=== PATIENT | male | born 1955 | race Caucasian/White ===

== ENCOUNTER → 2022-04-22 08:37 | Outpatient (BNVA) | payer MEDICARE, SELFPAY | PROVIDERS: PCP Internal Medicine; Visit Provider Anesthesiology | DX: G90.521 Complex regional pain syndrome I of right lower limb (principal); G89.4 Chronic pain syndrome; Z96.651 Presence of right artificial knee joint | CPT/HCPCS: 99202 ==

== ENCOUNTER 2023-06-11 10:42 | Outpatient (REF) | payer MEDICARE, SELFPAY ==
--- NOTE | ~2023-06-11 | XR_ITS ---
EXAMINATION: XR LUMBAR SPINE XR HIP, RIGHT, WITH PELVIS CLINICAL INFORMATION: Wedge compression fracture of L1 along with right hip pain. COMPARISON: None available. TECHNIQUE: 3 views lumbosacral spine, 2 views pelvis and 2 views right hip. FINDINGS: Lumbosacral Spine: Compression fractures with anterior wedging are present involving L1 and L2. No other fractures are seen. Disc spaces are relatively well preserved with the exception of L1-L2. There is grade 1 anterolisthesis of L5 upon S1. Pelvis and Right Hip: Bilateral hip prostheses are present. There has been extensive abdominal wall surgery with multiple clips. A lateral plate and screw device extends from the bottom of the right hip prosthesis all the way to the lateral femoral condyle with multiple screws. Healed fracture involving the distal femur is present. 2 cerclage sutures are present proximally with 2 present distally. A right knee prosthesis is partially included. No acute fractures are seen. XR/XR lumbar spine 2-3V IMPRESSION: 1. Compression fractures with anterior wedging involving L1 and L2. 2. Bilateral hip prostheses and right knee prosthesis. 3. No acute fractures are seen in the pelvis or right hip.
--- NOTE | ~2023-06-11 | XR_ITS ---
EXAMINATION: XR LUMBAR SPINE XR HIP, RIGHT, WITH PELVIS CLINICAL INFORMATION: Wedge compression fracture of L1 along with right hip pain. COMPARISON: None available. TECHNIQUE: 3 views lumbosacral spine, 2 views pelvis and 2 views right hip. FINDINGS: Lumbosacral Spine: Compression fractures with anterior wedging are present involving L1 and L2. No other fractures are seen. Disc spaces are relatively well preserved with the exception of L1-L2. There is grade 1 anterolisthesis of L5 upon S1. Pelvis and Right Hip: Bilateral hip prostheses are present. There has been extensive abdominal wall surgery with multiple clips. A lateral plate and screw device extends from the bottom of the right hip prosthesis all the way to the lateral femoral condyle with multiple screws. Healed fracture involving the distal femur is present. 2 cerclage sutures are present proximally with 2 present distally. A right knee prosthesis is partially included. No acute fractures are seen. XR/XR hip RT w PEL1V IMPRESSION: 1. Compression fractures with anterior wedging involving L1 and L2. 2. Bilateral hip prostheses and right knee prosthesis. 3. No acute fractures are seen in the pelvis or right hip.
== END 2023-06-11 10:43 | disposition home or self-care (01) ==
LOC: HO.HOSX 10:42
PROVIDERS: PCP Internal Medicine; Visit Provider Physical Medicine & Rehabilitation
DX: S32.000A Wedge compression fracture of unspecified lumbar vertebra, initial encounter for closed fracture (principal); M54.50 Low back pain, unspecified; M25.551 Pain in right hip; G89.29 Other chronic pain; X58.XXXA Exposure to other specified factors, initial encounter; Y93.9 Activity, unspecified; Y92.9 Unspecified place or not applicable; Y99.9 Unspecified external cause status
CPT/HCPCS: 72100; 73502

== ENCOUNTER 2023-06-11 10:42 | Outpatient (AMB) | payer MEDICARE, SELFPAY ==
--- NOTE | 2023-06-11 10:45 | A.OFFVIS_ITS ---
Intake Vital Signs 06/11/23 10:51 Height 5 ft 7 in Weight 280 lb BMI 43.8 Intake Visit Reasons: New Pt lower back pain Intake Note: Murray is a 68 year old male who presents today as a new patient with complaints of lower back pain. These symtpoms have onset gradually, was recently seen with pain mgmt on 04/22/23 who considered diagnosis of complex regional pain syndrome and recommends [employer] spinal cord stimulator. Patient reports that his lower right back pain has been present for quite some time now and has gotten worse over time. He has not had any previous treatment. This pain is present all the time, worse in the morning. 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 Recommended for spinal cord stimulator. 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 Says he was at [facility] for 10 days recently for pneumonia. He says he was supposed to go to a doctor in to put something but did not happen because he was in the hospital. He does not recall seeing Pain Management and discussing spinal cord stimulator. Poor historian. Chronic lower back pain, right sided, radiates to right leg. Per review of the notes from [facility], he also had an L1 vertebral fracture. Patient says he fell 4 months ago. On repeat questioning, he says pain started only after he fell. Says he has surgery on right knee. But past notes from [facility] indicates right hip ORIF. [facility] Medical History (Updated 06/11/23 @ 11:25 by Aruna Hicks MD) Lumbar compression fracture Surgical History (Updated 06/11/23 @ 10:50 by Jodi Perez CMA) History of appendectomy History of hip surgery Hx of hernia repair History of total left knee replacement Social History (Updated 06/11/23 @ 10:56 by Jodi Perez CMA) Current occupational status: retired Review of Systems Const All systems reviewed & are unremarkable except as noted in HPI and below Physical Exam Vital Signs: BMI result Body Mass Index 43.8 Constitutional: Patient appears to be in no acute distress, well nourished and well developed. Patient was appropriately conversant and oriented. Poor historian. MSK: No pinpoint tenderness on spinous processes. Area of tenderness is in right quadratus lumbar muscle. No SI joint tenderness. No GT tenderness. Antalgic gait. Neurological: Mood appears normal, good affect, and appropriate for the circumstances. Neurologic examination of the upper and lower extremities was nonfocal with intact sensation, muscle stretch reflexes and without focal motor deficits. Lopez?s negative bilaterally. Babinski was down going bilaterally. Clonus was negative. Results Reviewed Results Reviewed: No available imaging for my review. I reviewed records from the following: Dr. Pedroza - [employer] spinal cord stimulator. Notes from [facility] and [facility] reviewed Assessment & Plan Assessment & Plan (1) Hip pain: Code(s): M25.559 - Pain in unspecified hip (2) Lumbar compression fracture: Code(s): S32.000A - Wedge compression fracture of unspecified lumbar vertebra, initial encounter for closed fracture Plan Given question of recent L1 fracture and continued right hip pain, it would be reasonable to get lumbar and right hip x-rays today to further evaluate. If there is any fracture, physiatry/orthopedics can continue to advise or guide treatment. Otherwise he is a pain management patient who was being considered for spinal cord stimulator already. We would help him get follow-up appointment with them today. Orders: Orders XR hip RT w PEL1V Today M25.559 - Pain in unspecified hip XR lumbar spine 2-3V Today S32.000A - Wedge compression fracture of unspecified lumbar vertebra, initial encounter for closed fracture Coding Level of Care Code New Pt Level 4 (19999) Diagnoses Hip pain M25.559 Lumbar compression fracture S32.000A
[2023-06-11 10:51] VITALS: BMI 43.8
== END 2023-06-11 12:09 | disposition home or self-care (01) ==
PROVIDERS: PCP Internal Medicine; Visit Provider Physical Medicine & Rehabilitation
DX: M25.551 Pain in right hip (principal); S32.000A Wedge compression fracture of unspecified lumbar vertebra, initial encounter for closed fracture
CPT/HCPCS: 99204

== ENCOUNTER 2023-06-26 11:24 | Outpatient (AMB) | payer MEDICARE, SELFPAY ==
--- NOTE | 2023-06-26 11:25 | MHC.OFFVIS ---
Intake Intake Visit Reasons: Per Allergies NSAIDS (Non-Steroidal Anti-Inflamma [NSAIDS (NON-STEROIDAL ANTI-INFLAMMA] Allergy (Unknown, Verified 06/26/23 11:25) TOLD TO AVOID seasonal Allergy (Unknown, Uncoded 06/11/23 10:56) Unknown HPI HPI Comments History of Present Illness Details Murray ([place] in [place]) is very pleasant 68 years old gentleman who was referred to my office this time by the PM&R physician Dr. Aruna Hicks, who discovered this patient to have compression fracture of L1 and L2 vertebra as. Previously this patient was under observation in this office for lower back pain. He reported that his pain is moderate to severe in nature. He was offered spinal cord stimulator at that time. Unfortunately he fell off of the radar with this office. Now he is coming back for me to perform kyphoplasty on him. Apparently had a trauma in February of 2023. However the referral was made only now. The MRI which was done a week ago still demonstrates significant edema at L1 and L2 vertebra as. Today we called the patient and offered him kyphoplasty procedure. I explained to the patient at this late after the fracture it is mostly not about the pain it is rather about prevention of exaggerated kyphosis and diminishing pulmonary function capacity which could lead to poor bronchial toilet, pneumonias, and even . He is suffering from liver cirrhosis and he is alcoholic. We need to send him for stat CBC, PT, PTT and INR. He is on Eliquis for atrial fibrillation he will stop his Eliquis on 06/28/2023 and we will do the procedure on 07/02/2023. This will be balloon kyphoplasty of L1 and L2 vertebras. [facility] Medical History (Updated 06/26/23 @ 11:51 by Miguel Angel Pedroza MD) Lumbar compression fracture Surgical History (Updated 06/11/23 @ 10:50 by Jodi Perez CMA) History of appendectomy History of hip surgery Hx of hernia repair History of total left knee replacement Social History (Updated 06/11/23 @ 10:56 by Jodi Perez CMA) Current occupational status: retired Review of Systems Const Denies excessive sweating and Denies fatigue Eyes Denies change in vision ENT Reports Normal hearing present Card Denies chest pain at rest, Denies chest pain with activity, Denies diaphoresis, Denies syncope, Denies rapid heart rate and Denies pedal edema Resp Denies chest congestion, Denies cough, Denies hemoptysis, Denies pain on inspiration and Denies pain with cough GI Denies abdominal pain, Denies belching, Denies melena and Denies bloating Denies urinary incontinence Musc Reports as per HPI Neuro Reports Normal hearing present, Denies Abnormal speech present, Denies syncope, Denies seizure-like activity and Denies Sensory deficit (Neuro) Psych Denies irritability and Denies anhedonia Endo Denies excessive sweating and Denies fatigue Physical Exam Neuro Cranial nerves: Yes Normal hearing present Speech: No Abnormal speech present Sensory Exam: No Sensory deficit (Neuro) Results Reviewed Results Reviewed: Assessment & Plan Assessment & Plan (1) Lumbar compression fracture: Code(s): S32.000A - Wedge compression fracture of unspecified lumbar vertebra, initial encounter for closed fracture (2) Chronic pain syndrome: Code(s): G89.4 - Chronic pain syndrome (3) Compression fracture of L1 lumbar vertebra: Code(s): S32.010A - Wedge compression fracture of first lumbar vertebra, initial encounter for closed fracture (4) Compression fracture of L2 lumbar vertebra: Code(s): S32.020A - Wedge compression fracture of second lumbar vertebra, initial encounter for closed fracture Plan I WILL SEND THIS PATIENT FOR CBC AND PT/PTT/INR. We have about 5 days until the procedure. I am planning to do L1 and L2 kyphoplasty for this patient. I spoke with patient's daughter and explained the situation with the patient. His daughter told me that her father all is alcoholic and he is condition might be deteriorating in terms of liver function. I need to see platelets and normal PT and APTT numbers before the procedure. We can also order FFP and platelets to proceed with this intervention to normalize the coagulation status peer He will stop his Eliquis on Friday the last pill he will take Friday night. Orders: Orders Complete Blood Count Auto Diff Today G89.4 - Chronic pain syndrome, M25.559 - Pain in unspecified hip, S32.000A - Wedge compression fracture of unspecified lumbar vertebra, initial encounter for closed fracture, S32.010A - Wedge compression fracture of first lumbar vertebra, initial encounter for closed fracture, S32.020A - Wedge compression fracture of second lumbar vertebra, initial encounter for closed fracture Mixing Study (PT/PTT) Today G89.4 - Chronic pain syndrome, S32.000A - Wedge compression fracture of unspecified lumbar vertebra, initial encounter for closed fracture, S32.010A - Wedge compression fracture of first lumbar vertebra, initial encounter for closed fracture, S32.020A - Wedge compression fracture of second lumbar vertebra, initial encounter for closed fracture Partial Thromboplastin Time Today G89.4 - Chronic pain syndrome, S32.000A - Wedge compression fracture of unspecified lumbar vertebra, initial encounter for closed fracture, S32.010A - Wedge compression fracture of first lumbar vertebra, initial encounter for closed fracture, S32.020A - Wedge compression fracture of second lumbar vertebra, initial encounter for closed fracture Patient Instructions: I here by testify that I spent 60 minutes in conversation with this patient, with patient's caregiver, as well as with patient's daughter, as well as I was planning his care and organizing his note. Telehealth Telehealth Location of provider rendering services: practice address Location of patient: address on file Patient Identification confirmed using: Name, : Yes Telehealth method: voice only Patient verbally consented to treatment: Yes Patient verbally consented to billing insurance company: Yes Patient informed of any privacy concerns related to visit: Yes Coding Level of Care Code Tele Est Pt Level 5 (88312) Diagnoses Lumbar compression fracture S32.000A Chronic pain syndrome G89.4 Compression fracture of L1 lumbar vertebra S32.010A Compression fracture of L2 lumbar vertebra S32.020A
== END 2023-06-26 11:48 | disposition home or self-care (01) ==
LOC: HO.PMC 11:25
PROVIDERS: PCP Internal Medicine; Visit Provider Anesthesiology
DX: S32.000A Wedge compression fracture of unspecified lumbar vertebra, initial encounter for closed fracture (principal); G89.4 Chronic pain syndrome; S32.010A Wedge compression fracture of first lumbar vertebra, initial encounter for closed fracture; S32.020A Wedge compression fracture of second lumbar vertebra, initial encounter for closed fracture
CPT/HCPCS: 99443

== ENCOUNTER → 2023-06-26 11:24 | Outpatient (BNVA) | payer MEDICARE, SELFPAY | PROVIDERS: PCP Internal Medicine; Visit Provider Anesthesiology ==

== ENCOUNTER 2023-07-02 09:10 | Outpatient (REF) | payer MEDICARE, SELFPAY ==
[2023-07-02 10:21] LABS: MANUAL DIFF FLAG NO
[2023-07-02 10:26] LABS: Basophils Absolute Auto 0.1 X10*3/uL (0.0-0.2); Basophils Percent Auto 1.1 % (0-2); Eosinophils Absolute Auto 0.2 X10*3/uL (0.0-0.4); Eosinophils Percent Auto 5.4 % (0-4); Hematocrit 32.4 % (42.0-52.0); Hemoglobin 10.8 g/dl (14.0-18.0); Imm Gran Abs Auto 0.02 X10*3/uL (0.00-0.03); Imm Gran Pct Auto 0.4 % (0.0-0.4); Lymphocytes Percent Auto 44.7 % (20-40); Mean Corpuscular HGB Conc 33.3 g/dl (31.0-36.0); Mean Corpuscular Hemoglobin 32.9 pg (27.0-33.0); Mean Corpuscular Volume 98.8 fL (80.0-98.0); Mean Platelet Volume 12.6 fL (9.4-12.4); Monocytes Absolute Auto 0.4 X10*3/uL (0.1-1.2); Monocytes Percent Auto 8.5 % (2-11); Neutrophils Absolute Auto 1.8 x10*3/uL (2.0-8.3); Neutrophils Percent Auto 39.9 % (45-73); Platelet Count 141 X10*3/uL (160-400); Red Blood Count 3.28 X10*6/uL (4.60-5.80); Red Cell Distribution Width 13.5 % (11.0-16.0); White Blood Count 4.5 X10*3/uL (4.8-10.8)
[2023-07-02 10:32] LABS: Partial Thromboplastin Time 27.3 SEC (26.0-36.4)
[2023-07-02 11:11] LABS: INTERNATIONAL NORM RATIO 1.1 (0.9-1.1); Prothrombin Time 13.2 SEC (11.1-13.3)
== END 2023-07-02 09:11 | disposition home or self-care (01) ==
LOC: HO.10HDL 09:10
PROVIDERS: Visit Provider Anesthesiology
DX: S32.020A Wedge compression fracture of second lumbar vertebra, initial encounter for closed fracture (principal); S32.010A Wedge compression fracture of first lumbar vertebra, initial encounter for closed fracture; G89.4 Chronic pain syndrome; M25.559 Pain in unspecified hip; X58.XXXA Exposure to other specified factors, initial encounter; Y93.9 Activity, unspecified; Y92.9 Unspecified place or not applicable; Y99.9 Unspecified external cause status
CPT/HCPCS: 36415; 85025; 85610; 85611; 85730; 85732

== ENCOUNTER 2023-07-03 09:11 | Day surgery (SDC) | payer MEDICARE, SELFPAY ==
--- NOTE | 2023-07-02 10:35 | PC.NURSE ---
Call placed to patient at 1015 to see if he was coming to his procedure today. This nurse spoke to a family member who was his ride. He stated We were just there at the hospital, on the second floor room 205, and two nurses at the desk told us his procedure wasn't until tomorrow at 1115, we can come right back but Murray is eating now . This nurse walked down to isolation unit/pain clinic to notify them. Unsure at this time who family and patient spoke to to receive wrong information. Dr. Pedroza made aware. Case cancelled due to NPO status.
[2023-07-03] VITALS (8 sets, daily range): BP systolic 90–145; BP diastolic 44–91; PULSE 53–71; RESP 14–20; TEMP 36.2–36.8; O2SAT 96–97; BMI 32.4
--- NOTE | 2023-07-03 10:09 | HO.ANESPROP2 ---
HPI - Anesthesia Eval Consult details Narrative: for kyphoplasty PMFSH Active Problems Active Problems: All Active Problems (Updated 07/01/23 @ 10:05 by Esperanza Garcia RN) Compression fracture of L2 lumbar vertebra (Acute) Compression fracture of L1 lumbar vertebra (Acute) Hip pain (Acute) Status post total knee replacement, right (Acute) Chronic pain syndrome (Acute) Complex regional pain syndrome of right lower extremity (Acute) Lumbar compression fracture (Acute) Past Medical History Medical History (Updated 07/01/23 @ 10:05 by Esperanza Garcia RN) Alcoholism Cirrhosis Atrial fibrillation Lumbar compression fracture Family History Family history of problems with anesthesia: No Surgical History Surgical History (Updated 06/11/23 @ 10:50 by Jodi Perez CMA) History of appendectomy History of hip surgery Hx of hernia repair History of total left knee replacement History of Problems with Anesthesia: No Social History Social History (Updated 06/11/23 @ 10:56 by Jodi Perez CMA) Patient Tobacco Use Status: Never used Tobacco Are you DNR?: No Advance Directives: No Advance Directives Information Provided: Yes Nutrition Risks: No Nutritional Risk Current occupational status: retired [employer] Allergies Allergy/AdvReac Type Severity Reaction Status Date / Time NSAIDS (Non-Steroidal Allergy Unknown TOLD TO Verified 06/26/23 11:25 Anti-Inflamma AVOID [NSAIDS (NON-STEROIDAL ANTI-INFLAMMA] seasonal Allergy Unknown Unknown Uncoded 06/11/23 10:56 Active Medications: Current Medications Lactated Ringer's (Lr) 1,000 mls @ 50 mls/hr IVCONT .Q20H NAMRATA Last Admin: 07/03/23 10:01 Dose: 50 mls/hr Home Medications Medication Instructions Recorded Confirmed Last Taken Type acamprosate 333 mg tablet,delayed 333 mg PO TID 04/22/22 07/03/23 History release apixaban 5 mg tablet (Eliquis) 5 mg PO BID 04/22/22 06/26/23 History atorvastatin 10 mg tablet 10 mg PO DAILY 04/22/22 07/03/23 History diltiazem HCl 120 mg 120 mg PO DAILY 04/22/22 07/03/23 History capsule,extended release 24 hr (Cartia XT) folic acid 1 mg tablet 1 mg PO DAILY 04/22/22 07/03/23 History multivitamin with folic acid 400 1 tab PO DAILY 04/22/22 07/03/23 History mcg tablet (Daily-Edd (with folic acid)) pantoprazole 40 mg tablet,delayed 40 mg PO BID 04/22/22 07/03/23 History release potassium chloride 20 mEq 20 meq PO DAILY 04/22/22 07/03/23 History tablet,extended release thiamine HCl (vitamin B1) 100 mg 100 mg PO DAILY 04/22/22 07/03/23 History tablet Exam Exam Date and Time: July 03, 2023 100 Height,Weight and Vital Signs: Height 5 ft 7 in Weight 93.894 kg Last Vital Signs Temp 98.3 F 07/03/23 09:37 Pulse 68 07/03/23 09:37 Resp 20 07/03/23 09:37 BP 145/91 H 07/03/23 09:37 Pulse Ox 97 07/03/23 09:37 O2 Del Method Room Air 07/03/23 09:37 Airway Mallampati Class: III TM Dist: <=3cm Neck ROM: Limited Heart: ok Lungs: ok Assessment and Plan Assessment Anesthesia Assessment: Anesthesia Plan Discussed and Chart Reviewed Final Anesthetic Review Family History of Problems with Anesthesia: No History of Problems with Anesthesia: No NPO: Yes ASA Class: III Final Preanesthetic Review: No Changes in Pt Med Stat, Consent Obtained/Reviewed and Anes Risks/Benef Reviewed Patient Risk: Intermediate Procedure Risk: Intermediate Anesthetic Plan Anesthetic Plan: GA and Agree w/ Assess. and Plan Disposition: Standard PACU
--- NOTE | 2023-07-03 11:10 | MHC.SHP ---
Pre-Procedural Eval Section A Date of Service: 07/03/23 The patient is an INPATIENT: No Changes since office visit: Yes Patient answered all questions The History & Physical has been completed within 30 days and I have reviewed it.: No Section B Chief Complaint: Wedge compression fracture of first lumbar vertebr Details of Present Illness: L1 and L2 VCF Relevant Family History (Specify if Yes): No Relevant Social History: None Present Medications: None Medical History: Significant History History of Previous Operations: No relevant previous surgery Allergies: Allergies Allergy/AdvReac Type Severity Reaction Status Date / Time NSAIDS (Non-Steroidal Allergy Unknown TOLD TO Verified 06/26/23 11:25 Anti-Inflamma AVOID [NSAIDS (NON-STEROIDAL ANTI-INFLAMMA] seasonal Allergy Unknown Unknown Uncoded 06/11/23 10:56 Review of Systems Sugical H&P ROS: Negative: Cardiovascular, Respiratory, Neurological, Psychiatric, Hem-Onc, Allergic/Immunologic, Genitourinary, Integumentary, Endocrine and Eyes/Ears/Nose/Throat and Yes, Specify: Constitution (obesity), Gastrointestinal (liver cirrosis) and Musculoskeletal (osteoporosis) Exam Surgical H&P Exam: Normal: HEENT, Normal: Heart, Normal: Lungs, Normal: Extremities, Normal: Skin and Normal: Neurological and Significant Findings: Abdomen (enlarged) Plan Diagnosis/Plan: Unchanged I have reviewed the history and physical and performed a pertinent physical examination on my patient. No changes have occurred unless specified. Time Spent With Patient Time: Total time managing care of this patient today ___5_ minutes.
--- NOTE | 2023-07-03 13:38 | PM.OP ---
Brief Operative Note Date of Service: 07/03/23 Pre-op diagnosis: Compression fracture L1 and re-fracture of L2 vertebra Post-op diagnosis: same Procedure: Kyphoplasty L1 and L2 vertebra Implants: cement polimethylmethacrilare in both L1 and L2 vertebra Surgeon: Miguel Angel Pedroza MD Anesthesia: GETA Was an Campground Cleaning Attendant used for this Procedure?: No Estimated blood loss (mL): 8 Condition: stable Disposition: PACU
--- NOTE | 2023-07-03 13:41 | W.PM.OPN ---
Operative Note Operative Note Date of Service: 07/03/23 Narrative: Kyphoplasty of L1 and L2 vertebrae. Murray is very pleasant 68 years old gentleman who has had severe back pain that began approximately 4-5 months ago and is debilitating. He has been unresponsive to nonoperative treatment modalities including bed rest and analgesics. He presents with and is on medication therapy for coronary artery disease, history of AFib, chronic anticoagulation therapy with Eliquis , liver cirrhosis, osteoporosis, history of alcoholism . The patient stops his Eliquis on Friday06/27/2023. Radiographic imaging including MRI (06/11/23) confirms compression fractures of the spine at L1 and L2 vertebrae and demonstrate osseous edema in both L1 and L2 vertebras. In addition to the fractures, he demonstrate kyphotic posture. X-ray image demonstrated L1 and L2 osteoporotic fractures as well as increased loss of height at L2 and L1 vertebras. The decision was made to proceed for L1-L2 kyphoplasty. The patient was brought to the operating room/radiology suite and general anesthesia/local sedation with endotracheal intubation was performed. He received 2 g of cefazolin approximately 35 minutes before onset of the procedure. The patient was positioned prone on the radiolucent operating table, all pressure points were carefully protected and padded. The entire back was prepped with ChloraPrep twice and draped with full body sterile drape. Sterilely draped image intensifier (C-arm) was brought into position and the L2 pedicles were identified and marked with a skin marker. The points of entrance of the bilateral pedicels were chosen as the lateral margin of the equator of the pedicle on the anterior posterior view bilaterally. The entrance points to the skin was chosen as 3 cms away from the both point interest projection to the skin. The entrance points were anesthetized with lidocaine 2% mixed with ropivacaine 0.5% 1-1. after that paramedian 5 mm incision with 11 blade scalpel was made 1st on the right and then on the left side of the vertebra. After that the [employer] osteo introducer was advanced through the incision toward the point of interest 1st on the right and than the left and it was inserted into the bone only until stable. After that advancement of osteo introducer was made through the L2 pedicels to the junction of the pedicels and vertebral body on the right side 1st and on the left side 2nd. the Osteo introducer was hammered into the vertebral body through the pedicle on anterior posterior and lateral views. Care was taken not to cross medial border of the pedicular image on the anterior posterior view until the tip of the introducer is firmly in the vertebral body of L2 vertebra on the lateral view. the direction of the [employer] advancement was made in parallel to the superior and inferior borders of the pedicle. After the tip of the [employer] introducers were firmly position in the posterior 3rd of the vertebral body the hand drill was obtained and created passes for the intervertebral balloons advancing to the anterior 3rd of the vertebral body of L2 on lateral view. After that the vertebral balloons were inserted into the both introducers and they started to inflate on anterior posterior and lateral views intermittently with care taken not to exceed 200 psi of the inflation pressure. After that the balloons were removed and methacrylate contrasted cement was obtained and it was used to fill the created cavity inside the L2 vertebra. Three mLs of the cement were used on the right side and 2.5 mLs were used on the left side. The care was taken when the filling was performed to prevent cement spreading beyond the anterior and posterior margins of the image of the vertebra on the lateral view. The care was taken to prevent also backing up the contrasted cement into the image of the pedicles. No pedicular fractures was observed. After that attention was concentrated on L1 vertebra with the procedure repeated in the similar fashion on L1 vertebra. The total doses of the contrasted cement injected into the L1 vertebra was 4 mL on the right side and 1.0 mL on the left side. Upon completion of the instrumentation the Jamshidi introducers were removed, the incisions were closed using 4 0-0 silk vertical mattress sutures. Bacitracin ointment was applied and sterile dressing was applied with tegaderm. After that patient was awakened, extubated, and transferred stable to PACU. He reported axial pain in the projection of the incisions he denied discomfort in lower extremities. He exhibited normal muscular strength of bilateral lower extremities. The patient tolerated procedure fairly well.
== END 2023-07-03 15:44 | disposition home or self-care (01) ==
PROVIDERS: PCP Family Medicine; Visit Provider Anesthesiology
PROC: (CPT 22514; principal; 2023-07-03 11:00)
DX: S32.010A Wedge compression fracture of first lumbar vertebra, initial encounter for closed fracture (principal); S32.020A Wedge compression fracture of second lumbar vertebra, initial encounter for closed fracture; G89.4 Chronic pain syndrome; X58.XXXA Exposure to other specified factors, initial encounter; Y93.9 Activity, unspecified; Y92.89 Other specified places as the place of occurrence of the external cause; Y99.9 Unspecified external cause status; I25.10 Atherosclerotic heart disease of native coronary artery without angina pectoris; I48.91 Unspecified atrial fibrillation; Z79.01 Long term (current) use of anticoagulants; F10.20 Alcohol dependence, uncomplicated; K74.60 Unspecified cirrhosis of liver; Z79.899 Other long term (current) drug therapy; Z88.8 Allergy status to other drugs, medicaments and biological substances; Z98.890 Other specified postprocedural states
CPT/HCPCS: 22514; 22515; 36415; 85730; C1713; J0690; J2795; J3010; Q9967

== ENCOUNTER → 2023-07-03 09:11 | Outpatient (BNV) | payer MEDICARE, SELFPAY | PROVIDERS: PCP Family Medicine; Visit Provider Anesthesiology | DX: S32.010A Wedge compression fracture of first lumbar vertebra, initial encounter for closed fracture (principal); S32.020A Wedge compression fracture of second lumbar vertebra, initial encounter for closed fracture | CPT/HCPCS: 22514; 22515 ==

== ENCOUNTER 2023-07-16 13:22 | Outpatient (AMB) | payer MEDICARE, SELFPAY ==
--- NOTE | 2023-07-16 13:41 | A.OFFVIS_ITS ---
Intake Vital Signs 07/16/23 13:42 Height 5 ft 7 in Weight 207 lb 8 oz BMI 32.5 BP 138/68 Blood Pressure Location Rt brachial Respiration 16 Pulse 60 Pulse Source Pulse Oximeter Pulse Oximetry (%) 98 Oxygen Delivery Method Room Air Intake Visit Reasons: S/p Kyphoplasty 07/03/23 Allergies NSAIDS (Non-Steroidal Anti-Inflamma [NSAIDS (NON-STEROIDAL ANTI-INFLAMMA] Allergy (Unknown, Verified 07/16/23 13:43) TOLD TO AVOID seasonal Allergy (Unknown, Uncoded 06/11/23 10:56) Unknown HPI HPI Comments History of Present Illness Details Murray (Anhel in [place]) is very pleasant 68 years old gentleman who was referred to my office this time by the PM&R physician Dr. Aruna Ma, who discovered this patient to have compression fracture of L1 and L2 vertebras. He went for kyphoplasty L1 and L2 vertebra and he reports better respiratory function and absence of pain with deep breath. However he continues to endorse lower back pain. I in the past he was in this office considered to be a subject of neuromodulation treatment for lower back pain. We were considering him as Nevro versus pain pump candidate. However because he was an alcoholic he was unable to pass through psychological evaluation. He reports today that he was sober for past 2 months. We will find out whether not he will be a good candidate for psych evaluation now. Meanwhile he had MRI of the lumbar spine with [facility] which demonstrated only upper lumbar area. I suspect that he might have some Modic type changes in his lumbar spine and he could be a subject of intraseptal procedure. I will schedule him for the MRI of the lumbar lumbar spine. I need SRIR images please. He came today with no dressing on the areas of the incisions but incisions are completely healed. They were worst with ChloraPrep and the silk sutures were severed with scalpel. After that sterile Tegaderm films were applied. The patient was instructed not to take shower for 24 hours. Prior: Previously this patient was under observation in this office for lower back pain. He reported that his pain is moderate to severe in nature. He was offered spinal cord stimulator at that time. Unfortunately he fell off of the radar with this office. Now he is coming back for me to perform kyphoplasty on him. Apparently had a trauma in February of 2023. However the referral was made only now. The MRI which was done a week ago still demonstrates significant edema at L1 and L2 vertebra as. Today we called the patient and offered him kyphoplasty procedure. I explained to the patient at this late after the fracture it is mostly not about the pain it is rather about prevention of exaggerated kyphosis and diminishing pulmonary function capacity which could lead to poor bronchial toilet, pneumonias, and even . He is suffering from liver cirrhosis and he is alcoholic. We need to send him for stat CBC, PT, PTT and INR. He is on Eliquis for atrial fibrillation he will stop his Eliquis on 06/28/2023 and we will do the procedure on 07/02/2023. This will be balloon kyphoplasty of L1 and L2 vertebras. [facility] Medical History (Updated 07/16/23 @ 14:35 by Miguel Angel Pedroza MD) Alcoholism Cirrhosis Atrial fibrillation Lumbar compression fracture Surgical History (Updated 06/11/23 @ 10:50 by Jodi Perez CMA) History of appendectomy History of hip surgery Hx of hernia repair History of total left knee replacement Social History (Updated 06/11/23 @ 10:56 by Jodi Perez CMA) Patient Tobacco Use Status: Never used Tobacco Current occupational status: retired Review of Systems Const All systems reviewed & are unremarkable except as noted in HPI and below ENT Reports Normal hearing present Neuro Reports Normal hearing present, Denies Abnormal speech present and Denies Sensory deficit (Neuro) Physical Exam Vital Signs: Last Vital Signs Pulse 60 07/16/23 13:42 Resp 16 07/16/23 13:42 BP 138/68 07/16/23 13:42 Pulse Ox 98 07/16/23 13:42 Oxygen Delivery Method Room Air 07/16/23 13:42 BMI result Body Mass Index 32.5 Const General: no acute distress Orientation/consciousness: patient oriented x3 Eyes General: appearance normal, both eyes and all related structures Pupils: Equal, round and reactive pupils present EOM: EOMs intact bilaterally Neck Neck: Yes full ROM Chest Chest palpation & inspection: normal inspection of the chest Resp Effort & Inspection: normal respiratory effort, able to speak in complete sentences, normal respiratory pattern, no audible wheezes and no cough Cardio Jugular venous distension: no JVD GI Inspection: Yes normal to inspection Neuro General: patient oriented x3 and gait normal Cranial nerves: Yes Equal, round and reactive pupils present and Yes Normal hearing present Speech: No Abnormal speech present Gait exam (Neuro): Normal gait present Motor exam (neuro): 5/5 motor strength present throughout Sensory Exam: No Sensory deficit (Neuro) Extrem Other: There are 2 scars on skin surfaces of the right lower extremity status post total knee replacement on the frontal surface of the right knee and lateral scar on the lateral surface of the right hip. The pitting edema is detected +1 on the lower leg and anterior sheen. On circumference of the right hip 21 in versus left hip 19 in circumference of the lower leg aat the mid calf right 14.5 in versus left 13 in. There is objective discoloration of the right knee versus left knee it is more pale in color. There is a tenderness of palpation on anterior surface of the right knee as well as on lateral surface of the right thigh which is extremely severe in the center of the scar. General: No pedal edema Psych Speech and movement: Normal speech and movement present Affect: normal affect Attitude: cooperative Thought process: Normal thought process present Thought content: Normal thought content present Insight: Good insight present (Psych) Judgement: Good judgement present (Psych) Assessment & Plan Assessment & Plan (1) Lumbar compression fracture: Code(s): S32.000A - Wedge compression fracture of unspecified lumbar vertebra, initial encounter for closed fracture (2) Chronic pain syndrome: Code(s): G89.4 - Chronic pain syndrome (3) Compression fracture of L1 lumbar vertebra: Code(s): S32.010A - Wedge compression fracture of first lumbar vertebra, initial encounter for closed fracture (4) Compression fracture of L2 lumbar vertebra: Code(s): S32.020A - Wedge compression fracture of second lumbar vertebra, initial encounter for closed fracture (5) Vertebrogenic low back pain: Code(s): M54.51 - Vertebrogenic low back pain Plan Perform the lumbar spine MRI with STIR images. He had an MRI at [facility] with upper lumbar images but the fail to demonstrate L3-L4 and L5 vertebra as well as sacral bone. We will consult [facility] hand find out whether 2. months sobriety will be enough to schedule the patient for any ne uromodulation. Orders: Orders MR lumbar spine w con Today M54.51 - Vertebrogenic low back pain Coding Level of Care Code Est Pt Level 4 (90768) Diagnoses Lumbar compression fracture S32.000A Chronic pain syndrome G89.4 Compression fracture of L1 lumbar vertebra S32.010A Compression fracture of L2 lumbar vertebra S32.020A Vertebrogenic low back pain M54.51
[2023-07-16 13:42] VITALS: BP 138/68; PULSE 60; RESP 16; O2SAT 98; BMI 32.5
== END 2023-07-16 13:59 | disposition home or self-care (01) ==
PROVIDERS: PCP Family Medicine; Visit Provider Anesthesiology
DX: S32.000A Wedge compression fracture of unspecified lumbar vertebra, initial encounter for closed fracture (principal); G89.4 Chronic pain syndrome; S32.010A Wedge compression fracture of first lumbar vertebra, initial encounter for closed fracture; S32.020A Wedge compression fracture of second lumbar vertebra, initial encounter for closed fracture; M54.51 Vertebrogenic low back pain
CPT/HCPCS: 99024

== ENCOUNTER → 2023-07-16 13:22 | Outpatient (BNVA) | payer MEDICARE, SELFPAY | PROVIDERS: PCP Family Medicine; Visit Provider Anesthesiology | DX: S32.010A Wedge compression fracture of first lumbar vertebra, initial encounter for closed fracture (principal); S32.020A Wedge compression fracture of second lumbar vertebra, initial encounter for closed fracture; M54.51 Vertebrogenic low back pain; G89.4 Chronic pain syndrome | CPT/HCPCS: 99212 ==